=== PATIENT | female | born 1980 | race Caucasian/White ===

== ENCOUNTER 2017-08-24 22:57 | Emergency (ER) | payer OTHER ==
[~2017-08-24] VITALS: Ht 175.3 cm; Wt 83.9 kg
[2017-08-24] MEDS ORDERED: Norco 5-325 Ta1 EACH PO (23:54)
== END 2017-08-25 00:06 | disposition home or self-care (01) ==
LOC: ER 22:57
DX: S92.511A Displaced fracture of proximal phalanx of right lesser toe(s), initial encounter for closed fracture (principal); F17.200 Nicotine dependence, unspecified, uncomplicated; W22.8XXA Striking against or struck by other objects, initial encounter
CPT/HCPCS: 73660; 96372; 99283; J1885